=== PATIENT | female | born 1935 | race Hispanic/Latino ===

== ENCOUNTER 2018-02-14 06:49 | Day surgery (SDC) | payer MEDICARE, BC ==
[2014-05-20 08:54] VITALS: BMI 41.3
[2018-02-14] MEDS ORDERED: Propofol 10 mg/ml Inj (20 ML) ONE (08:46)
[2018-02-14] MEDS ORDERED: Etomidate 20 mg/10ml Inj IV ONE (08:46)
[2018-02-14] MEDS ORDERED: Sodium Chloride 0.9% 1,000 ML IV SCH (09:45)
[2018-02-14 10:40] VITALS: BP 134/68; PULSE 61; RESP 18; TEMP 98.3; O2SAT 99
== END 2018-02-14 11:12 | disposition home or self-care (01) ==
LOC: ENDO 06:49
PROVIDERS: ATTEND Specialist
DX: D12.0 Benign neoplasm of cecum (principal); D12.5 Benign neoplasm of sigmoid colon; K63.5 Polyp of colon; K64.8 Other hemorrhoids; J45.909 Unspecified asthma, uncomplicated; Z85.3 Personal history of malignant neoplasm of breast
CPT/HCPCS: 45380; 45385; 88305; J2001; J2704; J7030; J7040

== ENCOUNTER 2018-11-16 12:44 | Emergency (ER) | payer MEDICARE, BC ==
[2018-11-16 12:50] VITALS: RESP 18; BMI 41.0
--- NOTE | 2018-11-16 13:36 | ED PDOC ---
Arrival/HPI - General Chief Complaint: Trauma Time Seen by Provider: 11/16/18 13:19 Historian: Patient, Other (patient's tenant) - History of Present Illness Narrative History of Present Illness (Text): 11/16/18 13:36 A 83 year old female who is accompanied by her tenant, presents to the emergency department complaining of injury s/p fall. Per tenant, he and the patient were coincidentally exiting their residing building at the same time and he had walked her to the end of the sidewalk as patient was pushing her cart. However as tenant was walking ahead, he heard a crash and turned around to find patient on the ground, face down. Patient reports she felt she injured her nose mostly, describing a swelling sensation. Notes also obtaining abrasion to right elbow. Patient denies any LOC, or any other complaints at this time. Past Medical History - Provider Review Nursing Documentation Reviewed: Yes - Cardiac Hx Pacemaker: No - Neurological Hx Paralysis: No - Hematological/Oncological Hx Blood Transfusions: No Hx Blood Transfusion Reaction: No - Musculoskeletal/Rheumatological Hx Musculoskeletal Disorders: No - Psychiatric Hx Emotional Abuse: No Hx Physical Abuse: No Hx Substance Use: No - Anesthesia Hx Anesthesia Reactions: No Hx Malignant Hyperthermia: No - Suicidal Assessment Feels Threatened In Home Enviroment: No Family/Social History - Physician Review Nursing Documentation Reviewed: Yes Family/Social History: No Known Family HX Smoking Status: Never Smoked Hx Alcohol Use: Yes (SOCIAL) Frequency of alcohol use: Socially Hx Substance Use: No Allergies/Home Meds Allergies/Adverse Reactions: Allergies No Known Allergies Allergy (Verified 11/16/18 13:25) Home Medications: Home Meds Medication Instructions Recorded Confirmed Cholecalciferol (Vitamin D3) 5,000 iu PO DAILY 05/03/12 02/14/18 [Vitamin D] Montelukast [Singulair] 10 mg PO DAILY 05/03/12 02/14/18 5-Hydroxytryptophan (5-Htp) [5-Htp] 100 mg PO DAILY 01/29/18 02/14/18 Activated Charcoal [Charcoal] 200 mg PO DAILY 01/29/18 02/14/18 Ascorbic Acid [Vitamin C] 500 mg PO DAILY 01/29/18 02/14/18 Bilberry Fruit Extract [Bilberry 320 mg PO DAILY 01/29/18 02/14/18 Extract] Calc/D3/Mag/Zn/Mohinder/Mateusz/[place] 1 tab PO DAILY 01/29/18 02/14/18 [Super Calcium] Cholecalciferol (Vitamin D3) 1 tab PO DAILY 01/29/18 02/14/18 [D3-5000 90 mg-5000 Iu] Cider Vinegar [Apple Cider Vinegar] 300 mg PO DAILY 01/29/18 02/14/18 Cranberry Fruit Extract [Cranberry] 2,000 mg PO DAILY 01/29/18 02/14/18 Cyanocobalamin [Vitamin B12 100 1,000 mcg PO DAILY 01/29/18 02/14/18 mcg Tab] Flaxseed Oil [Flax Oil] 1,000 mg PO DAILY 01/29/18 02/14/18 Fluticasone/Salmeterol 250/50 1 puff IH DAILY 01/29/18 02/14/18 [Advair Diskus] Folic Acid 800 mg PO DAILY 01/29/18 02/14/18 Garlic [Garlic Oil] 2,000 mg PO DAILY 01/29/18 02/14/18 Jenny Root [Jenny] 500 mg PO DAILY 01/29/18 02/14/18 Ginkgo Biloba 60 mg PO DAILY 01/29/18 02/14/18 Gluc/Chong-MSM#1/C/Mateusz/Marvin/Bor 1 each PO BID 01/29/18 02/14/18 [Osteo Bi-Flex Caplet] Green Tea [place] Extract [Green Tea] 1 each PO DAILY 01/29/18 02/14/18 Lactobacillus Acidophilus 1 each PO DAILY 01/29/18 02/14/18 [Probiotic Acidophilus] Levocarnitine [Friendship Naturals 500 mg PO DAILY 01/29/18 02/14/18 l-Carnitine] Lutein [Jeffery Natural Lutein] 20 mg PO DAILY 01/29/18 02/14/18 Milk Thistle 175 mg PO DAILY 01/29/18 02/14/18 Multivit-Min/Iron/Folic/Lutein 1 each PO DAILY 01/29/18 02/14/18 [Centrum Silver Women Tablet] [place]-3/Dha/Epa/Fish Oil [Fish Oil 1 each PO DAILY 01/29/18 02/14/18 1,400 mg Softgel] Turmeric/Turmeric Root Extract 1 each PO DAILY 01/29/18 02/14/18 [Turmeric 500 mg Capsule] Ubidecarenone [Co Q-10] 200 mg PO DAILY 01/29/18 02/14/18 Vitamin E [Vitamin E 400 Units Cap] 400 iu PO DAILY 01/29/18 02/14/18 Review of Systems - Physician Review All systems were reviewed & negative as marked: Yes - Review of Systems ENT: Other (injury to nose) Skin: Other (abrasion right elbow) Neurological: absent: Other (no LOC) Physical Exam - Physical Exam Narrative Physical Exam (Text): Gen: VS reviewed, alert, well developed, well nourished, nontoxic, mild distress. ENT: normal pharynx. swelling to bridge of nose, dry blood to right nare. Eye: EOMI, PERRL. Neck: no JVD, supple, no adenopathy. CV: regular rate, regular rhythm, no rubs, no murmur, no gallops, S1, S2, pulses equal and strong. Pulm: no distress, clear to auscultation, no wheeze, no rhonchi, breath sounds equal, no rales. Abd: soft, nontender, no guarding, no rebound, no rigidity, normal bowel sounds. Ext: no edema. Skin: good color, no rash, no cyanosis. small abrasion to right elbow. Psych: responds appropriately to questions, normal affect. Neuro: oriented x 3, CN2-12 intact grossly, motor intact, sensation intact. Vital Signs Reviewed: Yes Vital Signs Temp Pulse Resp BP Pulse Ox 11/16/18 12:50 98.2 F 85 18 173/80 H 97 Temperature: Afebrile Blood Pressure: Hypertensive Pulse: Regular Respiratory Rate: Normal Appearance: Positive for: Well-Appearing, Non-Toxic, Comfortable Pain Distress: None Mental Status: Positive for: Alert and Oriented X 3 Medical Decision Making ED Course and Treatment: 11/16/18 13:45 Impression: 83 year old female with injuries s/p fall. Plan: -- Maxillofacial CT -- Reassess and disposition Progress Notes: 11/16/18 15:[address] [facility], , maury ?sp, recommends outpt follow up in one week. sinus precautions such as no nose blowing, nasal decongestants, and sneeze with mouth open. - RAD Interpretation Narrative RAD Interpretations (Text): 11/16/2018 14:[address] IMPRESSION: 1. Acute displaced fracture in the anterior wall of the right maxilla inferior laterally. Hemorrhagic fluid in the right maxillary sinus. 2. Acute comminuted displaced fractures in the right nasal bone and acute mildly displaced fracture in the left nasal bone with moderate nasal soft tissue swelling. 3. Chronic pansinusitis. Dictator: Gila Franco MD Radiology Orders: 11/16/18 13:26 MAXILLOFACIAL W/O CONTRAST [CT] Stat - Scribe Statement The provider has reviewed the documentation as recorded by the Scribe Yosi Lau Provider Scribe Attestation: All medical record entries made by the Scribe were at my direction and personally dictated by me. I have reviewed the chart and agree that the record accurately reflects my personal performance of the history, physical exam, medical decision making, and the department course for this patient. I have also personally directed, reviewed, and agree with the discharge instructions and disposition. Disposition/Present on Arrival - Present on Arrival Any Indicators Present on Arrival: No History of DVT/PE: No History of Uncontrolled Diabetes: No Urinary Catheter: No History of Decub. Ulcer: No History Surgical Site Infection Following: None - Disposition Have Diagnosis and Disposition been Completed?: Yes Diagnosis: Nasal fracture, Maxillary fracture Disposition: HOME/ ROUTINE Disposition Time: 15:45 Patient Plan: Discharge Condition: STABLE Discharge Instructions (ExitCare): Nose Fracture Additional Instructions: follow up with a facial surgeon within one week. avoid events that would increase pressure of the sinuses such blowing nose. please sneeze with your mouth open. use nasal decongestants to help with breathing. you may follow up with the facial surgeon: [facility] [phone]. The address is [address] [place] [address] in [place], [place]. call your regular nose doctor to help plan follow up. Forms: [employer] (Swiss)
--- NOTE | 2018-11-16 14:53 | CT ---
Date of service: 11/16/2018 PROCEDURE: CT MAXILLOFACIAL BONES WITHOUT CONTRAST HISTORY: trauma COMPARISON: None available. TECHNIQUE: Contiguous axial CT images of the maxillofacial bones were obtained. Coronal and sagittal reformats were generated. Radiation dose: Total exam DLP = 735.66 mGy-cm. This CT exam was performed using one or more of the following dose reduction techniques: Automated exposure control, adjustment of the mA and/or kV according to patient size, and/or use of iterative reconstruction technique. FINDINGS: NASAL BONES: There are acute comminuted displaced fractures in the right nasal bone and an acute mildly displaced fracture in the left nasal bone. There is moderate nasal soft tissue swelling and high attenuation fluid in the anterior superior nasal cavity likely hemorrhagic products. The nasal septum is deviated to the left. ORBITS: No acute orbital fracture. The globes are symmetric without evidence for orbital hemorrhage, lens dislocation or orbital emphysema. PARANASAL SINUSES/ MASTOIDS: There is high attenuation fluid completely opacifying the right maxillary sinus. 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 There is mild polypoid mucosal thickening in the left maxillary sinus with obstruction of bilateral infundibula. There is scattered mucoperiosteal thickening in the ethmoid air cells. There is mild polypoid mucosal thickening in the sphenoid sinus. There is high attenuation fluid in the frontal sinuses likely hemorrhage. MAXILLA: There is an acute displaced fracture in the anterior wall of the right maxilla inferolaterally. MANDIBLE/ TEMPOROMANDIBULAR JOINTS: No acute displaced fracture or dislocation. 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 SKULL BASE: Unremarkable. TEMPORAL BONES: Middle ears and mastoid grossly unremarkable. OTHER FINDINGS: None. IMPRESSION: 1. Acute displaced fracture in the anterior wall of the right maxilla inferior laterally. Hemorrhagic fluid in the right maxillary sinus. 2. Acute comminuted displaced fractures in the right nasal bone and acute mildly displaced fracture in the left nasal bone with moderate nasal soft tissue swelling. 2. Chronic pansinusitis.
[2018-11-16 16:13] VITALS: BP 186/109; PULSE 88; TEMP 98; O2SAT 98
== END 2018-11-16 16:25 | disposition home or self-care (01) ==
LOC: ED 12:44
DX: S02.2XXA Fracture of nasal bones, initial encounter for closed fracture (principal); S02.401A Maxillary fracture, unspecified side, initial encounter for closed fracture; W19.XXXA Unspecified fall, initial encounter; Y93.01 Activity, walking, marching and hiking